=== PATIENT | male | born 1990 | race African-American/Black ===

== ENCOUNTER 2018-03-11 17:07 | Emergency (ER) | payer OTHER ==
[~2018-03-11] VITALS: Ht 175.3 cm; Wt 68.2 kg
[2018-03-11] MEDS ORDERED: OMEP20 PO (17:17)
[2018-03-11] MEDS ORDERED: SODIUM CHLORIDE 0.9% 1,000 ML IV ONE (18:00)
[2018-03-11] MEDS ORDERED: OSELTAMIVIR PHOSPHATE 75 MG CAPSULE PO ONE (18:00)
[2018-03-11] MEDS ORDERED: BENZOCAINE/MENTHOL LOZENGE PO ONE (18:00)
[2018-03-11] MEDS ORDERED: KETOROLAC TROMETHAMINE 30 MG/ML VIAL IVP ONE (18:00)
[2018-03-11 18:53] LABS: INFLUENZA TYPE A NEGATIVE FOR TYPE A (NEGATIVE); INFLUENZA TYPE B NEGATIVE FOR TYPE B (NEGATIVE)
[2018-03-11 20:07] VITALS: BP 124/67
== END 2018-03-11 20:16 | disposition home or self-care (01) ==
LOC: EMS 17:09
DX: R05 Cough (principal); R51 Headache; R09.81 Nasal congestion
CPT/HCPCS: 87430; 87804; 96374; 99283; J1885; J7030